=== PATIENT | female | born 1985 | race Caucasian/White ===

== ENCOUNTER 2024-01-23 22:52 | Inpatient (IN) | payer SELFPAY ==
[~2024-01-23] VITALS: Ht 160 cm; Wt 76.2 kg
[2024-01-24] MEDS ORDERED: VANCOMYCIN 1G PREMIX 200 ML IV ONE (01:00)
[2024-01-24] MEDS ORDERED: HYDROCODONE/ACETAMINOPHEN 5/325MG TABLET PO ONE (01:00)
[2024-01-24] MEDS ORDERED: CEFTRIAXONE 1GM/50ML 50 ML IV ONE (01:00)
[2024-01-24 02:25] LABS: EOSINOPHILS % 2.6 % (0.0-5.0); HEMATOCRIT. 32.3 % (36.0-48.0); HEMOGLOBIN. 10.6 g/dL (12.0-16.0); LYMPHOCYTES % 19.3 % (20.0-50.0); MEAN CORPUSCULAR HEMOGLOBIN 26.9 pg (28.0-32.0); MEAN CORPUSCULAR HGB CONC 32.9 g/dL (31.0-37.0); MEAN CORPUSCULAR VOLUME 81.8 fL (81.0-99.0); MEAN PLATELET VOLUME 9.3 fl (7.4-10.4); MONOCYTES % 5.3 % (2.0-8.0); NEUTROPHILS % 71.8 % (40.0-76.0); PLATELET 253 x1000/uL (130-400); RED BLOOD CELL COUNT 3.95 mill/uL (4.2-5.4); RED CELL DISTRIBUTION WIDTH 15.5 % (11.6-14.6); WHITE BLOOD COUNT 9.2 x1000/uL (4.5-11.0)
[2024-01-24 02:39] LABS: CHLORIDE 99 mEq/L (98-107); SODIUM 132 mEq/L (136-145)
[2024-01-24 02:40] LABS: CARBON DIOXIDE 27 mEq/L (21-32)
[2024-01-24 02:41] LABS: CALCIUM 9.2 mg/dL (8.7-10.4)
[2024-01-24 02:45] LABS: CREATININE 0.9 mg/dL (0.6-1.0); UREA NITROGEN BLOOD 14 mg/dL (9-23)
[2024-01-24 02:56] LABS: GLUCOSE 458 mg/dL (70-105)
[2024-01-24] MEDS ORDERED: INSULIN REGULAR (HUMULIN R) 1000UNITS/10ML VIAL SUBCUT STA (02:59)
[2024-01-24] MEDS: SODIUM CHLORIDE 0.9% 1000ML BAG (SEPSIS BOLUS) IV ONE (03:56)
[2024-01-24] MEDS ORDERED: CEFTRIAXONE 1GM/50ML 50 ML IV NR (04:00)
[2024-01-24] MEDS ORDERED: VANCOMYCIN 1G PREMIX 200 ML IV NR (04:15)
[2024-01-24] MEDS: HYDROCODONE/ACETAMINOPHEN 5/325MG TABLET PO NR (04:20)
[2024-01-24] MEDS: INSULIN REGULAR (HUMULIN R) 1000UNITS/10ML VIAL SUBCUT NR (04:20)
[2024-01-24] MEDS ORDERED: CLONIDINE 0.1MG TABLET PO PRN (05:45)
[2024-01-24] MEDS ORDERED: DOCUSATE SODIUM 100MG CAPSULE PO PRN (05:45)
[2024-01-24] MEDS ORDERED: ACETAMINOPHEN 325MG TABLET PO PRN ×2 (05:45)
[2024-01-24] MEDS ORDERED: MAGNESIUM/ALUMINUM HYDROXIDE/SIMETHICONE 30ML UDC PO PRN (05:45)
[2024-01-24] MEDS ORDERED: GUAIFENESIN 200MG/10ML SUGAR FREE UDC PO PRN (05:45)
[2024-01-24] MEDS ORDERED: DEXTROSE 50% WATER 50ML SYRINGE IV PRN (05:45)
[2024-01-24] MEDS ORDERED: IPRATROPIUM/ALBUTEROL 0.5-3(2.5)MG/3ML NEB HHN PRN (05:45)
[2024-01-24 06:00] VITALS: BP 157/80; PULSE 84; RESP 20; TEMP 98.9
[2024-01-24] MEDS ORDERED: CEFEPIME 1GM IN DEXT 5% 50ML IV SCH (06:15)
[2024-01-24] MEDS: PANTOPRAZOLE 40MG DR TABLET PO SCH (07:20)
[2024-01-24] MEDS: BLOOD SUGAR DIAGNOSTIC STRIP TEST SCH (07:20)
[2024-01-24] MEDS: INSULIN LISPRO 100 UNITS/ML SUBCUT SCH (07:50)
[2024-01-24 08:00] VITALS: BP 127/79; PULSE 92; RESP 20; TEMP 97.2
[2024-01-24] MEDS: ENOXAPARIN 40MG/0.4ML SYR SUBCUT SCH (09:09)
[2024-01-24] MEDS: CEFEPIME 1GM/50ML 50 ML IV SCH (09:26)
[2024-01-24] MEDS: INSULIN GLARGINE 100 UNITS/ML SUBCUT SCH (10:01)
[2024-01-24] MEDS: VANCOMYCIN 1.5GM/250ML IV NR (11:00)
[2024-01-24] MEDS: CLINDAMYCIN 600MG PREMIX 50 ML IV SCH (11:00)
[2024-01-24 11:34] LABS: CHLORIDE 104 mEq/L (98-107); POTASSIUM 3.9 mEq/L (3.5-5.1); SODIUM 135 mEq/L (136-145)
[2024-01-24 11:35] LABS: CALCIUM 8.9 mg/dL (8.7-10.4); CARBON DIOXIDE 23 mEq/L (21-32)
[2024-01-24 11:40] LABS: CREATININE 0.6 mg/dL (0.6-1.0); GLUCOSE 201 mg/dL (70-105); IRON 30 ug/dL (50-170); UREA NITROGEN BLOOD 9 mg/dL (9-23)
[2024-01-24 11:42] LABS: ALANINE AMINOTRANSFERASE < 7 IU/L (10-49); ALBUMIN 3.8 g/dL (3.2-4.8); ASPARTATE AMINOTRANSFERASE 10 IU/L (<34); PHOSPHORUS 3.1 mg/dL (2.5-4.9)
[2024-01-24 11:43] LABS: BILIRUBIN TOTAL 0.2 mg/dL (0.1-1.0); PROTEIN TOTAL 6.9 g/dL (6.0-8.3); TOTAL IRON BINDING CAPACITY 559 ug/dl (250-425)
[2024-01-24 11:53] LABS: FERRITIN 19 ng/mL (10-291)
[2024-01-24 11:54] LABS: FOLIC ACID (FOLATE) SERUM 17.35 ng/mL (>5.38); VITAMIN B12 SERUM 263 pg/mL (211-911)
[2024-01-24 12:00] VITALS: BP 117/78; PULSE 98; RESP 20; TEMP 97.6
[2024-01-24] MEDS: CEFEPIME 2GM/100ML 100 ML IV SCH (15:52)
[2024-01-24 16:00] VITALS: BP 131/78; PULSE 98; RESP 20; TEMP 97.6
[2024-01-24 20:00] VITALS: BP 137/76; PULSE 99; RESP 18; TEMP 97.9
[2024-01-24] MEDS: VANCOMYCIN 750MG/150ML (BAXTER) IV SCH (23:00)
[2024-01-25 04:00] VITALS: BP 141/78; RESP 18; TEMP 98.6
[2024-01-25 08:00] VITALS: BP 111/76; PULSE 97; RESP 18; TEMP 98.2
[2024-01-25 09:26] LABS: BASOPHILS % 0.8 % (0.0-2.0); EOSINOPHILS % 1.8 % (0.0-5.0); LYMPHOCYTES % 11.9 % (20.0-50.0); MEAN CORPUSCULAR HEMOGLOBIN 26.3 pg (28.0-32.0); MEAN CORPUSCULAR HGB CONC 32.4 g/dL (31.0-37.0); MEAN CORPUSCULAR VOLUME 81.1 fL (81.0-99.0); MEAN PLATELET VOLUME 9.5 fl (7.4-10.4); MONOCYTES % 4.5 % (2.0-8.0); PLATELET 274 x1000/uL (130-400); RED BLOOD CELL COUNT 4.56 mill/uL (4.2-5.4); RED CELL DISTRIBUTION WIDTH 15.5 % (11.6-14.6); WHITE BLOOD COUNT 10.7 x1000/uL (4.5-11.0)
[2024-01-25 09:38] LABS: THYROID STIMULATING HORMONE 2.78 uIU/mL (0.55-4.78)
[2024-01-25 10:17] LABS: CHLORIDE 101 mEq/L (98-107); POTASSIUM 3.8 mEq/L (3.5-5.1); SODIUM 135 mEq/L (136-145)
[2024-01-25 10:18] LABS: CALCIUM 9.7 mg/dL (8.7-10.4); CARBON DIOXIDE 25 mEq/L (21-32)
[2024-01-25 10:23] LABS: CREATININE 0.7 mg/dL (0.6-1.0); GLUCOSE 246 mg/dL (70-105); TRIGLYCERIDE 112 mg/dL (0-150); UREA NITROGEN BLOOD 8 mg/dL (9-23)
[2024-01-25 10:24] LABS: LDL CHOLESTEROL 136 mg/dL (5-100)
[2024-01-25 10:25] LABS: CHOLESTEROL 186 mg/dL (<200); HDL CHOLESTEROL 43 mg/dL (>65)
[2024-01-25] MEDS ORDERED: PANT40TA51 PO (13:02)
[2024-01-25] MEDS ORDERED: INSU100I28 SQ (13:02)
[2024-01-25] MEDS ORDERED: AMOX1TAB16 MT (13:02)
[2024-01-25] MEDS ORDERED: DOXY100C5 MT (13:02)
[2024-01-25 14:41] VITALS: BP 130/89; PULSE 90; TEMP 98; O2SAT 99
== END 2024-01-25 15:01 | disposition home or self-care (01) | DRG 813 ==
LOC: ER 22:52 → 6EST 01-24 02:57 → EDBEDREQTM 01-24 03:34 → EDBEDREQ 01-24 03:34
PROVIDERS: ADMIT Hospitalist; ATTEND Hospitalist
PROC: 0JBQ0ZZ Excision of Right Foot Subcutaneous Tissue and Fascia, Open Approach (ICD-10-PCS; principal; 2024-01-24)
DX: T81.31XA Disruption of external operation (surgical) wound, not elsewhere classified, initial encounter (principal); E11.40 Type 2 diabetes mellitus with diabetic neuropathy, unspecified; E11.621 Type 2 diabetes mellitus with foot ulcer; D63.8 Anemia in other chronic diseases classified elsewhere; L03.115 Cellulitis of right lower limb; E66.9 Obesity, unspecified; E11.65 Type 2 diabetes mellitus with hyperglycemia; Z68.29 Body mass index [BMI] 29.0-29.9, adult; Z89.412 Acquired absence of left great toe; R26.9 Unspecified abnormalities of gait and mobility; Z79.4 Long term (current) use of insulin; X58.XXXA Exposure to other specified factors, initial encounter; Y93.89 Activity, other specified; Y92.89 Other specified places as the place of occurrence of the external cause; Y99.8 Other external cause status; F17.200 Nicotine dependence, unspecified, uncomplicated; Z83.3 Family history of diabetes mellitus; Z89.429 Acquired absence of other toe(s), unspecified side; L97.519 Non-pressure chronic ulcer of other part of right foot with unspecified severity
CPT/HCPCS: 36415; 73630; 80048; 80053; 80061; 82010; 82607; 82728; 82746; 82962; 83036; 83540; 83550; 83605; 83735; 83930; 84100; 84145; 84439; 84443; 85025; 86850; 86900; 87070; 87077; 87186; 93923; 99285; J0692; J0696; J1650; J1815; J3370; J3490; J7030